=== PATIENT | female | born 1980 | race Caucasian/White ===

== ENCOUNTER 2016-10-13 20:24 | Outpatient (CLI) | payer MEDICAID ==
[~2016-10-13] VITALS: Ht 160 cm; Wt 76.4 kg
[2016-10-13 20:36] VITALS: Ht 160 cm; Wt 76.4 kg
[2016-10-13 20:37] VITALS: BP 117/67; PULSE 97; RESP 18
[2016-10-13] MEDS ORDERED: ONDANSETRON 4 MG INJ IV STA (20:49)
[2016-10-13] MEDS ORDERED: PREN-93 PO (20:49)
[2016-10-13] MEDS ORDERED: LACTATED RINGER'S 1,000 ML IV SCH ×2 (20:49→22:06)
[2016-10-13 21:59] LABS: ADD SCAN DIFF NO
[2016-10-13 22:00] LABS: BASOPHILS % 0.4 % (0.0-2.0); EOSINOPHILS # 0.2 10^3/ul (0.0-0.5); HEMATOCRIT 34.1 % (37.0-47.0); HEMOGLOBIN 11.9 g/dl (12.0-16.0); LYMPHOCYTES # 0.7 10^3/ul (0.8-2.9); LYMPHOCYTES % 7.2 % (15.0-51.0); MEAN CORPUSCULAR HEMOGLOBIN 32.6 pg (29.0-33.0); MEAN CORPUSCULAR HGB CONC 34.9 g/dl (32.0-37.0); MEAN CORPUSCULAR VOLUME 93.4 fl (82.0-101.0); MEAN PLATELET VOLUME 9.3 fl (7.4-10.4); MONOCYTE # 0.5 10^3/ul (0.3-0.9); MONOCYTES % 4.7 % (0.0-11.0); NEUTROPHIL # 8.2 10^3/ul (1.6-7.5); NEUTROPHILS % 82.3 % (39.0-77.0); PLATELET COUNT 233 10^3/UL (140-415); RED BLOOD COUNT 3.65 10^6/ul (4.20-5.40); RED CELL DISTRIBUTION WIDTH 12.8 % (11.5-14.5)
[2016-10-13 22:11] LABS: ADD UMIC YES; URINE BILIRUBIN (Dip) NEGATIVE (NEGATIVE); URINE BLOOD (Dip) TRACE (NEGATIVE); URINE COLOR LT. YELLOW (YELLOW); URINE GLUCOSE (Dip) NEGATIVE (NEGATIVE); URINE KETONES (Dip) 3+ (NEGATIVE); URINE LEUKOCYTE ESTERASE (Dip) NEGATIVE (NEGATIVE); URINE NITRITE (Dip) NEGATIVE (NEGATIVE); URINE TOTAL PROTEIN (Dip) 1+ (NEGATIVE); URINE UROBILINOGEN (Dip) 0.2 E.U./dL (0.1-1.0)
[2016-10-13 22:16] LABS: ALBUMIN 3.4 g/dl (3.3-4.9)
[2016-10-13 22:17] LABS: POTASSIUM 3.1 mmol/L (3.5-5.1)
[2016-10-13 22:19] LABS: BILIRUBIN,INDIRECT 0.5 mg/dl (0-1.1); BILIRUBIN,TOTAL 0.5 mg/dl (0.2-1.3); CREATININE 0.49 mg/dl (0.44-1.00); TOTAL PROTEIN 6.8 g/dl (6.1-8.1)
[2016-10-13 22:20] LABS: CALCIUM 8.7 mg/dl (8.4-10.2)
[2016-10-13 22:59] LABS: BACTERIA,URINE MODERATE; MUCUS,URINE MODERATE; SQUAMOUS EPITHELIAL CELL,UR MODERATE; URINE RBCS 0-2 /HPF (0)
--- NOTE | 2016-10-14 04:45 | QN ---
Documentation Comment Laborist Dr Fleming's pt 36 y.o. with an IUP at 23w 5d c/o nausea, vomiting and diarrhea since noon , multiple times of each. No VB or leaking. +FM. PMHx: none. PSHx: none. NKDA. T=99.4 BP 117/67 Dopplers on baby, FHT's in the 140's. No UC's. U/A negative with 3+ ketones. CMP wnl, except K+ sl. low. WBC 10. Hgb 11.9. A: IUP at 23w 5d. Viral syndrome. P: IV hydration, Zofran Pt felling much better and is ready for D/C. GHADA BESS MD October 14, 2016 04:45
--- NOTE | 2016-10-14 07:05 | TRIAGE ---
OB Triage Datetime Report Generated by CPN: 10/14/2016 07:05 Datetime: 10/14/2016 04:27 Stage of : OB Triage Datetime: 10/14/2016 04:00 Labor Evaluation Frequency: 0 Monitor Mode: External Datetime: 10/14/2016 03:00 Labor Evaluation Frequency: 0 Monitor Mode: External Datetime: 10/14/2016 02:00 Labor Evaluation Frequency: 0 Monitor Mode: External Datetime: 10/14/2016 01:00 Labor Evaluation Frequency: 2/ HR Monitor Mode: External Duration (sec)2399: 60-100 Datetime: 10/14/2016 00:00 Labor Evaluation Frequency: 0 Monitor Mode: External Datetime: 10/13/2016 23:00 Labor Evaluation Frequency: 0 Monitor Mode: External Datetime: 10/13/2016 22:00 Labor Evaluation Frequency: 0 Monitor Mode: External Datetime: 10/13/2016 21:00 Labor Evaluation Frequency: 0 Monitor Mode: External Datetime: 10/13/2016 20:47 EGA: 23.4 Datetime: 10/13/2016 20:31 Stage of : OB Triage Time of Arrival: 10/13/2016 19:54 Arrived By: Wheelchair Arrived From: Home Chief Complaint: DIARRHEA VOMITING Movement: Present Rupture of Membranes: Denies Vaginal Discharge: Denies Recent Sexual Intercouse: Denies Abdominal Trauma: Not Applicable Time Provider Notified: 10/13/2016 19:30 Provider Notified: DR BESS Initial Plan: CALL NASIR KERNS Maternal Assessment Level of Consciousness: Fully Conscious DTR's/Clonus: DTRs 2+; No Clonus Headache: Denies Blurred Vision: No Respiratory Effort: Unlabored; Regular Rhythm; Equal Expansion Breath Sounds, Left: Clear and Equal Breath Sounds, Right: Clear and Equal Nausea/Vomiting: Denies RUQ Epigastric Pain: Denies Lower Extremities Edema: None Degree: None Upper Extremities Edema: None Degree: None Facial Edema: None Temperature Route: Oral Fall Risk Assessment History of Falling: (0) No Secondary Diagnosis: (0) No Ambulatory Aid: (0) Bedrest/Nurse Assist IV Therapy: (0) No Gait: (0) Normal/Bedrest/Immobile Mental Status: (0) Oriented to Own Ability Fall Score: 0 Fall Risk Score Definition: No Risk: No action required Monitor Mode: External Heart Rate Monitor Mode: External US Comments: DOPPLER 142 BPM Pain Assessment Pain Scale: 0 Datetime: 10/13/2016 20:22 Stage of : OB Triage
== END 2016-10-14 05:08 | disposition home or self-care (01) ==
LOC: L-D 20:24 → OBT 20:24
PROVIDERS: ATTEND Obstetrics & Gynecology
DX: O98.512 Other viral diseases complicating pregnancy, second trimester (principal); B34.9 Viral infection, unspecified; Z3A.23 23 weeks gestation of pregnancy
CPT/HCPCS: 36415; 80053; 81001; 85025; 87086; 96360; 96361; 96372; J2405; J7120; Z7500; 81003; G0463

== ENCOUNTER 2016-10-15 14:42 | Outpatient (CLI) | payer MEDICAID, OTHER ==
[~2016-10-15] VITALS: Ht 160 cm; Wt 76.0 kg
[~2016-10-15 14:42] MED LIST: PREN-93 PO
[2016-10-15 15:12] VITALS: BP 116/72; PULSE 110; Ht 160 cm; Wt 76.0 kg
--- NOTE | 2016-10-15 18:50 | QN ---
Documentation Comment Laborist- OB triage Pt is a 36yo at 23+6 presenting with c/o diarrhea. Pt seen 2d ago in OB triage for N/V/D and given antiemetics and hydration encouraged. CBC and CMP done at that time. N/V have since resolved. Pt was seen in clinic today by Dr. Fleming and was instructed to proceed with expectant management of sxs, however pt presented to OB triage. Pt c/o feeling feverish at home. Reports recent sick contacts with children at work who had flu-like sxs (cough, fever) per pt. is well. Denies eating anything abnormal. Pt reports normal FM, denies LOF, VB or contractions. Discussed pt with Dr. Fleming by materials research engineer. No labs needed today. Pt was given reassurance in clinic today and advised to allow things to resolve at home. O: T 99.8 BP 116/72 P 110 R 18 Gen: well appearing, NAD FHT: 160s Assessment and Plan Likely viral gastroenteritis Discussed w/pt and that generally GI distress resolves within 72H if not sooner. Encouraged PO hydration with electrolyte replacing fluids while loose stools continue. Also dietary sources of potassium are important. If sxs have not improved within 72H, would encourage pt take Loperamide and return to OB Triage. May consider sending stool for C. diff. Infection, PTL and PPROM precautions reviewed with pt. Questions answered to pt and her 's satisfaction. CATHERINE SOLIS MD October 15, 2016 18:50
== END 2016-10-15 16:15 | disposition home or self-care (01) ==
LOC: OBT 14:42 → L-D 14:42 → OBT 16:15
PROVIDERS: ATTEND Obstetrics & Gynecology
DX: O26.892 Other specified pregnancy related conditions, second trimester (principal); R19.7 Diarrhea, unspecified; O21.0 Mild hyperemesis gravidarum; Z3A.23 23 weeks gestation of pregnancy
CPT/HCPCS: G0463

== ENCOUNTER 2017-02-01 11:02 | Inpatient (IN) | payer OTHER ==
[~2017-02-01] VITALS: Ht 160 cm; Wt 82.4 kg
[2017-02-01 12:44] VITALS: Ht 160 cm; Wt 82.4 kg
[2017-02-01 12:45] VITALS: BP 134/87; PULSE 135; RESP 18
[2017-02-01 12:50] LABS: BASOPHILS % 0.4 % (0.0-2.0); EOSINOPHILS # 0.4 10^3/ul (0.0-0.5); EOSINOPHILS % 4.2 % (0.0-7.0); HEMATOCRIT 36.6 % (37.0-47.0); HEMOGLOBIN 12.6 g/dl (12.0-16.0); LYMPHOCYTES # 1.8 10^3/ul (0.8-2.9); LYMPHOCYTES % 19.1 % (15.0-51.0); MEAN CORPUSCULAR HEMOGLOBIN 32.2 pg (29.0-33.0); MEAN CORPUSCULAR HGB CONC 34.4 g/dl (32.0-37.0); MEAN CORPUSCULAR VOLUME 93.6 fl (82.0-101.0); MEAN PLATELET VOLUME 9.5 fl (7.4-10.4); MONOCYTE # 0.6 10^3/ul (0.3-0.9); NEUTROPHILS % 69.1 % (39.0-77.0); PLATELET COUNT 226 10^3/UL (140-415); RED BLOOD COUNT 3.91 10^6/ul (4.20-5.40); RED CELL DISTRIBUTION WIDTH 13.3 % (11.5-14.5); WHITE BLOOD COUNT 9.7 10^3/ul (4.8-10.8)
[2017-02-01 12:58] LABS: ADD UMIC YES; UR ASCORBIC ACID NEGATIVE (NEGATIVE); UR BACTERIA FEW /HPF (NONE SEEN); UR BILIRUBIN (Dip) NEGATIVE (NEGATIVE); UR BLOOD (Dip) NEGATIVE (NEGATIVE); UR CLARITY CLOUDY (CLEAR); UR COLOR AMBER (YELLOW); UR GLUCOSE (Dip) NEGATIVE (NEGATIVE); UR KETONES (Dip) NEGATIVE (NEGATIVE); UR LEUKOCYTE ESTERASE (Dip) 3+ Leu/ul (NEGATIVE); UR MUCUS FEW /HPF (NONE SEEN); UR NITRITE (Dip) NEGATIVE (NEGATIVE); UR RBC 3 /HPF (0-5); UR SQUAMOUS EPITHELIAL CELL MANY /HPF (FEW); UR TOTAL PROTEIN (Dip) 1+ mg/dl (NEGATIVE); UR UROBILINOGEN (Dip) NEGATIVE (NEGATIVE)
--- NOTE | 2017-02-01 12:58 | RADRPT ---
PROCEDURE: OB ultrasound for biophysical profile CLINICAL INDICATION: labor TECHNIQUE: Multiple sonographic images of the pelvis were obtained. Transabdominal view of the gr avid uterus are available for review. The images were reviewed on a PACS workstation. COMPARISON: None FINDINGS: breathing movement = 2/2 tone = 2/2 motion = 2/2 BRIDGETTE = 2/2 BRIDGETTE = 15.7 cm Single live intrauterine with cardiac activity. heart rate equals 166 beats p er minute. Presentation is cephalic. The placenta is anterior, grade II. IMPRESSION: 1. Single viable intrauterine gestation. 2. Biophysical profile = 8/8. 3. BRIDGETTE = 15.7 cm. RPTAT: KK .Randal Mcintyre MD, MD Date Time Electronically viewed and signed by .Randal Mcintyre MD, MD on 02/01/2017 12:58 .B/
--- NOTE | 2017-02-01 13:00 | RADRPT ---
PROCEDURE: US OB - Limited weight. CLINICAL INDICATION: labor TECHNIQUE: Multiple sonographic images of the pelvis were obtained. Transabdominal imaging only w as performed. The images were reviewed on a PACS workstation. COMPARISON: No prior studies are available for comparison. FINDINGS: There is a single viable intrauterine gestation. Cardiac activity is present with 168 beats per min anurag. There is a cephalic presentation. Measurements were made in order to determine age. The results are as follows: BPD = 8.42 cm HC = 30.50 cm AC = 36.29 cm FL = 7.24 .cm Estimated gestational age of approximately 36 weeks 2 days +/ - 2 weeks 4 days by ultrasound evalua tion. The estimated date of delivery is 02/27/2017 by ultrasound evaluation. The EFW = 3353 g +/- 503 g (35.8%). The placenta is anterior, grade II. IMPRESSION: 1. Single viable intrauterine gestation of approximately 36 weeks 2 days with estimated date of del parvin of 02/27/2017 by ultrasound evaluation. 2. The estimated weight is 3353 g (35.8%) . RPTAT: KK .Randal Mcintyre MD, MD Date Time Electronically viewed and signed by .Randal Mcintyre MD, MD on 02/01/2017 13:00 .B/
[2017-02-01 13:23] LABS: ALBUMIN 3.7 g/dl (3.3-4.9); ALBUMIN/GLOBULIN RATIO 1.15; BILIRUBIN,INDIRECT 0.5 mg/dl (0-1.1); BILIRUBIN,TOTAL 0.5 mg/dl (0.2-1.3); CALCIUM 9.3 mg/dl (8.4-10.2); CREATININE 0.51 mg/dl (0.44-1.00); POTASSIUM 3.5 mmol/L (3.5-5.1); TOTAL PROTEIN 6.9 g/dl (6.1-8.1); URIC ACID 3.7 mg/dl (3.1-7.9)
--- NOTE | 2017-02-01 13:56 | TRIAGE ---
OB Triage Datetime Report Generated by CPN: 02/01/2017 13:56 Datetime: 02/01/2017 13:30 Stage of : OB Triage Maternal Assessment Level of Consciousness: Fully Conscious Labor Evaluation Frequency: 5uc/hr Monitor Mode: External Duration (sec)2399: 30-80 Quality: Mild Resting Tone G[place]: Relaxed Heart Rate FHR Baseline Rate: 160 Monitor Mode: External US Variability: Moderate 6-25 bpm Accelerations: Prolonged Decelerations: None Category: Category II Pain Assessment Pain Scale: 0 Pain Goal: 3 Vaginal Exam Membrane Status: Intact Vaginal Bleeding: None Datetime: 02/01/2017 12:30 Stage of : OB Triage Maternal Assessment Level of Consciousness: Fully Conscious Labor Evaluation Frequency: 1uc/hr Monitor Mode: External Duration (sec)2399: 60 Quality: Mild Resting Tone [place]: Relaxed Heart Rate FHR Baseline Rate: 150 Monitor Mode: External US Variability: Moderate 6-25 bpm Accelerations: 15X15 Decelerations: Variable Category: Category II Pain Assessment Pain Scale: 0 Pain Goal: 3 Vaginal Exam Membrane Status: Intact Vaginal Bleeding: None Datetime: 02/01/2017 11:20 Assessment Type: Triage Maternal Assessment Level of Consciousness: Fully Conscious DTR's/Clonus: DTRs 2+; No Clonus Headache: Denies Blurred Vision: No Respiratory Effort: Unlabored; Regular Rhythm; Equal Expansion Breath Sounds, Left: Clear and Equal Breath Sounds, Right: Clear and Equal Nausea/Vomiting: Denies RUQ Epigastric Pain: Denies Lower Extremities Edema: None Degree: None Upper Extremities Edema: None Degree: None Facial Edema: None Fall Risk Assessment History of Falling: (0) No Secondary Diagnosis: (0) No Ambulatory Aid: (0) Bedrest/Nurse Assist IV Therapy: (0) No Gait: (0) Normal/Bedrest/Immobile Mental Status: (0) Oriented to Own Ability Fall Score: 0 Fall Risk Score Definition: No Risk: No action required Datetime: 02/01/2017 11:19 Time of Arrival: 02/01/2017 10:56 EGA: 39.3 Arrived By: Ambulatory Arrived From: Home Movement: Present Contractions: Denies/Absent Rupture of Membranes: Denies Vaginal Bleeding: None Vaginal Discharge: Denies Recent Sexual Intercouse: Denies Abdominal Trauma: Not Applicable Patient Complaints: None Time Provider Notified: 02/01/2017 13:50 Provider Notified: DELSHAD Initial Plan: CBC,CMP, URIC ACID, UA, U/S EFW, BPP Datetime: 10/15/2016 16:04 Stage of : OB Triage Datetime: 10/15/2016 15:54 Stage of : OB Triage Datetime: 10/15/2016 15:41 Stage of : OB Triage Datetime: 10/15/2016 15:15 Comments: OFF DUE TO GESTATIONAL AGE Datetime: 10/15/2016 15:08 Stage of : OB Triage Assessment Type: Triage Maternal Assessment Level of Consciousness: Fully Conscious DTR's/Clonus: DTRs 2+; No Clonus Headache: Denies Blurred Vision: No Respiratory Effort: Unlabored; Regular Rhythm; Equal Expansion Breath Sounds, Left: Clear and Equal Breath Sounds, Right: Clear and Equal RUQ Epigastric Pain: Denies Facial Edema: None Temperature Route: Axillary Fall Risk Assessment History of Falling: (0) No Secondary Diagnosis: (0) No Ambulatory Aid: (0) Bedrest/Nurse Assist IV Therapy: (0) No Gait: (0) Normal/Bedrest/Immobile Mental Status: (0) Oriented to Own Ability Fall Score: 0 Fall Risk Score Definition: No Risk: No action required Labor Evaluation Frequency: 0 Monitor Mode: External Resting Tone G[place]: Relaxed Heart Rate FHR Baseline Rate: 160 Monitor Mode: External US Variability: Minimal - Undetectable to <=5 bpm Accelerations: None Decelerations: None Category: Category II Pain Assessment Pain Scale: 9 Pain Presence: Constant Pain Type: Ache Pain Location: Abdomen Pain Goal: 3 Pain Relief Measures: Comfort Measures Datetime: 10/15/2016 15:06 Time of Arrival: 10/15/2016 14:40 EGA: 23.6 Arrived By: Ambulatory Arrived From: Home Chief Complaint: C/O N/V, DIARRHEA X 3 DAYS, DENIES BLEEDING OR LEAKING OF FLUID Movement: Present Contractions: Denies/Absent Rupture of Membranes: Denies Vaginal Discharge: Denies Recent Sexual Intercouse: Denies Abdominal Trauma: Not Applicable Time Provider Notified: 10/15/2016 16:04 Provider Notified: NINA Initial Plan: MONITOR, Datetime: 10/13/2016 20:47 EGA: 23.4 Datetime: 10/13/2016 20:31 Fall Score: 0 Fall Risk Score Definition: No Risk: No action required
[2017-02-01] MEDS ORDERED: LACTATED RINGER'S 1,000 ML IV PRN (15:33)
[2017-02-01] MEDS: LACTATED RINGER'S 1,000 ML IV SCH ×2 (15:49→21:29)
[2017-02-01] MEDS ORDERED: CARBOPROST 250 MCG INJ IM PRN (16:00)
[2017-02-01] MEDS ORDERED: LIDOCAINE 1% (MPF) 30 ML INJ INJ PRN (16:00)
[2017-02-01] MEDS ORDERED: BUTORPHANOL 2 MG INJ IV PRN (16:00)
[2017-02-01] MEDS ORDERED: METHYLERGONOVINE 0.2 MG INJ IM PRN (16:00)
[2017-02-01] MEDS ORDERED: OXYTOCIN 30 UNITS/LR 500 ML IV PRN (16:00)
[2017-02-01] MEDS ORDERED: IBUPROFEN 600 MG TAB PO PRN (16:00)
[2017-02-01] MEDS ORDERED: OXYTOCIN 30 UNITS/LR 500 ML IV SCH ×3 (16:00→16:30)
[2017-02-01] MEDS ORDERED: MISOPROSTOL 200 MCG TAB PR PRN (16:00)
[2017-02-01 16:38] LABS: BASOPHILS % 0.4 % (0.0-2.0); EOSINOPHILS # 0.3 10^3/ul (0.0-0.5); EOSINOPHILS % 2.8 % (0.0-7.0); HEMATOCRIT 37.1 % (37.0-47.0); HEMOGLOBIN 12.7 g/dl (12.0-16.0); LYMPHOCYTES % 19.2 % (15.0-51.0); MEAN CORPUSCULAR HEMOGLOBIN 31.8 pg (29.0-33.0); MEAN CORPUSCULAR HGB CONC 34.2 g/dl (32.0-37.0); MEAN CORPUSCULAR VOLUME 92.8 fl (82.0-101.0); MONOCYTE # 0.6 10^3/ul (0.3-0.9); MONOCYTES % 5.8 % (0.0-11.0); NEUTROPHILS % 70.4 % (39.0-77.0); PLATELET COUNT 240 10^3/UL (140-415); RED CELL DISTRIBUTION WIDTH 13.3 % (11.5-14.5); WHITE BLOOD COUNT 10.6 10^3/ul (4.8-10.8)
[2017-02-01 16:51] LABS: PROTIME 13.2 Sec (12.2-14.2)
[2017-02-01 16:52] LABS: PARTIAL THROMBOPLASTIN TIME 26.6 Sec (25.0-35.0)
[2017-02-01] MEDS ORDERED: ACETAMINOPHEN 325 MG TAB PO PRN (20:30)
--- NOTE | 2017-02-02 00:24 | HP ---
Date/Time of Note Date/Time of Note DATE: 02/02/17 TIME: 00:20 OB - History Hx of Present Chief Complaint: elevated BP Estimated Due Date: Feb 06, 2017 : 3 Para: 2 Spontaneous : 0 Therapeutic : 0 Care: Good Care Ultrasounds: Normal mid trimester US Obstetrical Complications: None Medical Complications: None Past Family/Social History * Past Medical, Surgical, Family and Obstetric Histories reviewed from chart. GBS Status: Negative OB Admission Exam Vital Signs Vital Signs Vital Signs Date Time Temp Pulse Resp B/P Pulse Ox O2 Delivery O2 Flow Rate FiO2 02/01/17 12:45 98.6 135 18 134/87 Room Air Physical Exam HEENT: WNL Heart: Rhythm Normal Lungs: Clear Abdomen: WNL Extremities: Normal Cervical Dilatation: 2cm Effacement: 50% Station: -1 Membranes: Intact Heart Rate: 120's Accelerations: Accelerations Present Decelerations: No Decelerations Varibility: Moderate Last 72 hours Lab Results CBC & BMP 02/01/17 12:34 02/01/17 15:37 Liver Function Test 02/01/17 12:34 Alanine Aminotransferase (ALT/SGPT) 23 Albumin 3.7 Alkaline Phosphatase 140 H Aspartate Amino Transf (AST/SGOT) 17 Direct Bilirubin 0.00 Total Protein 6.9 OB Assessment/Plan Reason for admission: induction of labor Plan: Induction Induction Method: per Pitocin Protocol KAREN LUCIANO MD Feb 02, 2017 00:24
--- NOTE | 2017-02-02 03:42 | LDN ---
Date/Time of Note Date/Time of Note DATE: 02/02/17 TIME: 03:40 Delivery Summary Weeks of Gestation 39 weeks and 3 days Placenta Delivered: Spontaneously Meconium: none Episiotomy: No Perineal laceration: 0 Anesthesia type: None Estimated blood loss: 200 Sponge & Needle done & correct: Yes All needle counts correct: Yes Any foreign bodies felt in the: No Problems: Infant Delivery Information Sex Infant Sex: female Apgars 1 Minute: 9 5 Minute: 9 Suctioning Nose & mouth suctioned at reg: Yes Delee suction performed: No Umbilical Cord Umbilical cord with: 3 Vessels Cord presentations: no nuchal cord Cord Blood was obtained: Yes Mother & Baby Disposition Disposition Mom & Baby to Maternity; Good: Yes KAREN LUCIANO MD Feb 02, 2017 03:42
[2017-02-02 05:20] VITALS: BP 108/63; PULSE 84; RESP 18
[2017-02-02] MEDS ORDERED: BENZOCAINE 20% 56 ML SPRAY TOP PRN (05:30)
[2017-02-02] MEDS ORDERED: DIBUCAINE 1% 30 GM OINT PR PRN (05:30)
[2017-02-02] MEDS ORDERED: WITCH HAZEL/GLYCERIN PAD PR PRN (05:30)
[2017-02-02] MEDS ORDERED: CARBOPROST 250 MCG INJ IM PRN (05:30)
[2017-02-02] MEDS ORDERED: OXYTOCIN 30 UNITS/LR 500 ML IV PRN (05:30)
[2017-02-02] MEDS ORDERED: METHYLERGONOVINE 0.2 MG INJ IM PRN (05:30)
[2017-02-02] MEDS ORDERED: HYDROCODONE/APAP (5/325) TAB PO PRN (05:30)
[2017-02-02] MEDS ORDERED: LANOLIN 7 GM TUBE TOP PRN (05:30)
[2017-02-02] MEDS ORDERED: MISOPROSTOL 200 MCG TAB PR PRN (05:30)
[2017-02-02] MEDS ORDERED: ACETAMINOPHEN 325 MG TAB PO PRN (05:30)
[2017-02-02 05:51] VITALS: BP 109/62; PULSE 73; RESP 18
[2017-02-02] MEDS: IBUPROFEN 600 MG TAB PO SCH ×3 (06:20→17:36)
[2017-02-02] MEDS ORDERED: LABETALOL HCL 20MG INJ IV ONE (06:30)
[2017-02-02] MEDS: LACTATED RINGER'S 1,000 ML IV* SCH ×2 (08:21→11:05)
[2017-02-02 08:29] VITALS: BP 107/62; PULSE 85; RESP 18
[2017-02-02] MEDS: SENNA/DOCUSATE NA (8.6MG/50MG) TAB PO SCH ×2 (09:00→21:00)
[2017-02-02 16:45] VITALS: BP 105/67; PULSE 79; RESP 18
[2017-02-02 20:00] VITALS: BP 108/67; PULSE 86; RESP 18
[2017-02-03 04:02] VITALS: BP 93/53; PULSE 75; RESP 18
[2017-02-03] MEDS: IBUPROFEN 600 MG TAB PO SCH ×4 (06:00→17:25)
[2017-02-03 08:00] VITALS: BP 115/67; PULSE 80; RESP 18
[2017-02-03] MEDS: SENNA/DOCUSATE NA (8.6MG/50MG) TAB PO SCH ×2 (08:26→21:00)
[2017-02-03 08:46] LABS: BASOPHIL # 0.1 10^3/ul (0.0-0.1); BASOPHILS % 0.5 % (0.0-2.0); EOSINOPHILS # 0.6 10^3/ul (0.0-0.5); EOSINOPHILS % 6.2 % (0.0-7.0); HEMOGLOBIN 11.7 g/dl (12.0-16.0); LYMPHOCYTES # 2.1 10^3/ul (0.8-2.9); LYMPHOCYTES % 20.4 % (15.0-51.0); MEAN CORPUSCULAR HEMOGLOBIN 31.5 pg (29.0-33.0); MEAN CORPUSCULAR HGB CONC 33.4 g/dl (32.0-37.0); MEAN CORPUSCULAR VOLUME 94.3 fl (82.0-101.0); MEAN PLATELET VOLUME 9.7 fl (7.4-10.4); MONOCYTE # 0.6 10^3/ul (0.3-0.9); MONOCYTES % 6.4 % (0.0-11.0); NEUTROPHILS % 65.3 % (39.0-77.0); PLATELET COUNT 227 10^3/UL (140-415); RED BLOOD COUNT 3.71 10^6/ul (4.20-5.40); RED CELL DISTRIBUTION WIDTH 13.4 % (11.5-14.5); WHITE BLOOD COUNT 10.1 10^3/ul (4.8-10.8)
[2017-02-03 16:00] VITALS: BP 110/78; PULSE 85; RESP 18
[2017-02-03 20:00] VITALS: BP 107/71; PULSE 81; RESP 18
--- NOTE | 2017-02-03 21:59 | QN ---
Documentation Comment No complaint Afebrile VSS Stable Continue prsent care KAREN LUCIANO MD Feb 03, 2017 21:59
[2017-02-04 04:00] VITALS: BP 107/75; PULSE 77; RESP 18
[2017-02-04] MEDS: IBUPROFEN 600 MG TAB PO SCH ×4 (06:00→18:00)
[2017-02-04 08:00] VITALS: BP 110/80; PULSE 73; RESP 18
[2017-02-04] MEDS: SENNA/DOCUSATE NA (8.6MG/50MG) TAB PO SCH (09:00)
[2017-02-04] MEDS ORDERED: DIPHTH/TET/ACEL PERTUSS (ADULT) 0.5 ML VIAL IM* ONE (09:00)
--- NOTE | 2017-02-05 20:03 | DS ---
Date/Time of Note Date/Time of Note DATE: 02/05/17 TIME: 20:03 Obstetrical Discharge Record Final Diagnosis Final Diagnosis: Term delivered Vaginal Delivery Obstetrical Delivery: Spontaneous Complications Induction: Yes Condition on Discharge Physical Assessment Voiding: Yes Bowel Movement: Yes Breast: Soft, non-tender Fundus: Firm Calf Tenderness: No Patient Condition: Stable KAREN LUCIANO MD Feb 05, 2017 20:03
== END 2017-02-04 20:40 | disposition home or self-care (01) | DRG 775 ==
LOC: L-D 11:02 → OBT 11:02 → L-D 13:59 → PP1 02-02 05:19
PROVIDERS: ADMIT Obstetrics & Gynecology; ATTEND Obstetrics & Gynecology
PROC: 10E0XZZ Delivery of Products of Conception, External Approach (ICD-10-PCS; principal; 2017-02-02)
PROC: 3E033VJ Introduction of Other Hormone into Peripheral Vein, Percutaneous Approach (ICD-10-PCS; 2017-02-02)
DX: O80 Encounter for full-term uncomplicated delivery (principal); Z37.0 Single live birth; Z3A.39 39 weeks gestation of pregnancy
CPT/HCPCS: 76815; 76818; 80053; 81001; 84560; 85025; 85610; 85730; 86592; 86900; 86901; G0463; J2590; J7120